=== PATIENT | male | born 1940 | race Caucasian/White ===

== ENCOUNTER 2017-11-10 08:33 | Emergency (ER) | payer MEDICARE, OTHER ==
[~2017-11-10] VITALS: Ht 180.3 cm; Wt 104.0 kg
[~2017-11-10 08:33] MED LIST: ALFU10TA PO; CLOP75TA15 PO; CYAN-19 PO; FISH12002 PO; HUMAN GROWTH HORMONE; LACTC PO; MELA5TAB12 PO; METF750T2 PO; NEBI5TAB10 PO; NIA500ERT PO; TADA5TAB2 PO; TAMS0.4C32 PO; TAUR500C2 PO; TELM80TA6 PO; TESTOSTERONE CREAM; THYR32.510 PO; UBID50CA31 PO; XAL0.005OS EACHEYE; [UNRECOGNIZED DRUG - CODE] PO
[2017-11-10 10:01] LABS: BASOPHILS % (AUTO) 0.5 % (0-1); EOSINOPHILS # (AUTO) 0.3 X10'3 (0-0.9); EOSINOPHILS % (AUTO) 5.8 % (0-6); HEMATOCRIT 50.6 % (42.0-52.0); HEMOGLOBIN 17.1 g/dl (14.0-17.9); LYMPHOCYTES % (AUTO) 22.1 % (21-51); MEAN CORPUSCULAR HEMOGLOBIN 30.6 PG (27.0-31.0); MEAN CORPUSCULAR HGB CONC 33.7 % (33.0-36.5); MEAN CORPUSCULAR VOLUME 90.8 FL (78-98); MEAN PLATELET VOLUME 8.9 FL (7.4-10.4); MONOCYTES # (AUTO) 0.6 X10'3 (0-0.9); NEUTROPHILS # (AUTO) 2.6 X10'3 (1.8-7.7); NEUTROPHILS % (AUTO) 58.6 % (42-75); PLATELET COUNT 159 X10'3 (140-440); RED BLOOD COUNT 5.58 X10'6 (4.70-6.10); RED CELL DISTRIBUTION WIDTH 14.3 % (11.5-14.5); WHITE BLOOD COUNT 4.4 X10'3 (4.5-11.0)
[2017-11-10 11:25] VITALS: BP 128/68
== END 2017-11-10 11:27 | disposition home or self-care (01) ==
LOC: ER 08:33
DX: K62.5 Hemorrhage of anus and rectum (principal); I48.91 Unspecified atrial fibrillation; Z86.718 Personal history of other venous thrombosis and embolism; Z79.899 Other long term (current) drug therapy
CPT/HCPCS: 36415; 85025; 99283

== ENCOUNTER 2018-04-28 12:58 | Outpatient (CLI) | payer OTHER, MEDICARE ==
[~2018-04-28 12:58] MED LIST changes: -TELM80TA6 PO; +TELM80TA9 PO
== END 2018-04-28 23:59 | disposition home or self-care (01) ==
LOC: VAS 12:58
PROVIDERS: ATTEND Internal Medicine Cardiovascular Disease
DX: I65.23 Occlusion and stenosis of bilateral carotid arteries (principal); I73.9 Peripheral vascular disease, unspecified; I25.2 Old myocardial infarction; I10 Essential (primary) hypertension; E11.9 Type 2 diabetes mellitus without complications
CPT/HCPCS: 93922; 93925

== ENCOUNTER 2020-08-20 15:14 | Emergency (ER) | payer OTHER ==
[~2020-08-20] VITALS: Ht 180.3 cm; Wt 116.8 kg
[~2020-08-20 15:14] MED LIST changes: -CYAN-19 PO; +CYAN-51 PO; -METF750T2 PO; +METF750T46 PO
[2020-08-20] MEDS ORDERED: furosemide 40mg/4ml inj IV ONE (15:35)
[2020-08-20 15:59] LABS: BASOPHILS % (AUTO) 0.7 % (0-1); EOSINOPHILS # (AUTO) 0.2 X10'3 (0-0.9); EOSINOPHILS % (AUTO) 3.5 % (0-6); HEMATOCRIT 44.6 % (42.0-52.0); HEMOGLOBIN 14.8 g/dl (14.0-17.9); LYMPHOCYTES # (AUTO) 1.4 X10'3 (1.1-4.8); LYMPHOCYTES % (AUTO) 24.4 % (21-51); MEAN CORPUSCULAR HEMOGLOBIN 30.8 PG (27.0-31.0); MEAN CORPUSCULAR HGB CONC 33.2 g/dL (33.0-36.5); MEAN CORPUSCULAR VOLUME 92.7 FL (78-98); MEAN PLATELET VOLUME 8.7 FL (7.4-10.4); MONOCYTES # (AUTO) 0.6 X10'3 (0-0.9); MONOCYTES % (AUTO) 10.3 % (2-12); NEUTROPHILS # (AUTO) 3.5 X10'3 (1.8-7.7); NEUTROPHILS % (AUTO) 61.1 % (42-75); PLATELET COUNT 141 X10'3 (140-440); RED CELL DISTRIBUTION WIDTH 14.7 % (11.5-14.5); WHITE BLOOD COUNT 5.7 X10'3 (4.5-11.0)
[2020-08-20 16:07] LABS: PARTIAL THROMBOPLASTIN TIME 31 SECONDS (22-32)
[2020-08-20 16:11] LABS: ALANINE AMINOTRANSFERASE 39 U/L (12-78); ALBUMIN 2.6 G/DL (3.4-5.0); ALBUMIN/GLOBULIN RATIO 0.8 (1.1-1.5); ALKALINE PHOSPHATASE 38 IU/L (46-116); ANION GAP 9 (8-16); ASPARTATE AMINO TRANSFERASE 24 U/L (10-37); BILIRUBIN,TOTAL 0.5 MG/DL (0.1-1.0); BLOOD UREA NITROGEN 18 MG/DL (7-18); BUN/CREATININE RATIO 18.6 (5.4-32.0); CALCIUM 6.6 MG/DL (8.5-10.1); CHLORIDE 111 MMOL/L (99-107); CREATININE 0.97 MG/DL (0.60-1.10); GLUCOSE 151 MG/DL (70-104); POTASSIUM 3.3 MMOL/L (3.5-5.1); SODIUM 143 MMOL/L (135-145); TOTAL CARBON DIOXIDE 22.9 MMOL/L (24-32); TOTAL PROTEIN 5.8 G/DL (6.4-8.2); eGFR 75 ML/MIN
--- NOTE | 2020-08-20 16:32 | NUR ---
tanna stood at bedside and used urinal 400 ml out, denied sob
[2020-08-20] MEDS ORDERED: potassium Cl 20 mEq SR tablet PO ONE (17:00)
[2020-08-20] MEDS ORDERED: FURO-150 PO (17:00)
--- NOTE | 2020-08-20 17:37 | NUR ---
LEFT MESSAGE FOR TO CALL BACK WELL AUGUSTINA SCHMID
[2020-08-20 18:11] VITALS: BP 149/84
== END 2020-08-20 18:00 | disposition home or self-care (01) ==
LOC: ER 15:15
DX: I50.9 Heart failure, unspecified (principal); R06.02 Shortness of breath; R07.89 Other chest pain; R60.0 Localized edema; I48.91 Unspecified atrial fibrillation; E11.9 Type 2 diabetes mellitus without complications; Z86.73 Personal history of transient ischemic attack (TIA), and cerebral infarction without residual deficits; Z86.718 Personal history of other venous thrombosis and embolism; Z88.8 Allergy status to other drugs, medicaments and biological substances; Z79.899 Other long term (current) drug therapy
CPT/HCPCS: 36415; 71045; 80053; 82948; 83880; 84484; 85025; 85610; 85730; 93005; 96374; 99285; J1940

== ENCOUNTER 2020-12-13 14:43 | Emergency (ER) | payer OTHER ==
[~2020-12-13] VITALS: Ht 180.3 cm; Wt 107.9 kg
[2020-12-13 14:49] VITALS: BP 126/58
== END 2020-12-13 20:05 | disposition left against medical advice (07) ==
LOC: ER 14:44
DX: R05 Cough (principal); Z53.21 Procedure and treatment not carried out due to patient leaving prior to being seen by health care provider

== ENCOUNTER 2022-07-07 14:34 | Day surgery (SDC) | payer OTHER ==
[2022-07-03 11:13] LABS: APTT 33 SECONDS (22-32)
[2022-07-03 11:15] LABS: ALBUMIN 3.4 G/DL (3.4-5.0); BLOOD UREA NITROGEN 24 MG/DL (7-18); BUN/CREATININE RATIO 16.2 (5.4-32.0); CALCIUM 9.4 MG/DL (8.5-10.1); CHLORIDE 102 MMOL/L (99-107); CHOL/HDL RATIO 4.2 (0.00-4.99); CHOLESTEROL 159 MG/DL (0-200); CREATININE 1.48 MG/DL (0.60-1.10); GLUCOSE 155 MG/DL (70-104); HDL CHOLESTEROL 38 MG/DL (35-60); LDL CHOLESTEROL 113 MG/DL (50-100); POTASSIUM 4.5 MMOL/L (3.5-5.1); TOTAL CARBON DIOXIDE 26.9 MMOL/L (24-32); TRIGLYCERIDES 59 MG/DL (20-135); eGFR 46 ML/MIN
[2022-07-03 11:19] LABS: ANION GAP 10 (8-16); SODIUM 139 MMOL/L (135-145)
[2022-07-07] VITALS (9 sets, daily range): BP systolic 111–170; BP diastolic 53–81
[~2022-07-07] VITALS: Ht 180.3 cm; Wt 106.1 kg
[~2022-07-07 14:34] MED LIST changes: +ACET-76 PO; +ALBU1.256 NEB; -ALFU10TA PO; +ALOG25TA PO; +APIX5TAB3 PO; +CILO100T27 PO; -CLOP75TA15 PO; +DEXA6TAB PO; +DICL20GE TOP; +DOCU100C40 PO; +DONE10TA44 PO; -FISH12002 PO; -HUMAN GROWTH HORMONE; +ISOS30TA84 PO; -LACTC PO; +LATA2.5D14 OP; +LIDO5CRE18 TOP; +LIDO700A32 TOP; +LOSA100T57 PO; -MELA5TAB12 PO; -NEBI5TAB10 PO; -NIA500ERT PO; -TADA5TAB2 PO; -TAMS0.4C32 PO; -TAUR500C2 PO; -TELM80TA9 PO; -TESTOSTERONE CREAM; -THYR32.510 PO; +THYR60TA2 PO; -UBID50CA31 PO; -XAL0.005OS EACHEYE; +[UNRECOGNIZED DRUG - CODE]; -[UNRECOGNIZED DRUG - CODE] PO
[2022-07-07] MEDS ORDERED: LORazepam 0.5 MG tablet PO PRN (14:50)
[2022-07-07] MEDS ORDERED: diphenhydrAMINE 25mg capsule PO PRN (14:50)
[2022-07-07] MEDS ORDERED: normal saline 1,000 ML IV SCH (14:50)
[2022-07-07 16:07] LABS: BASOPHILS # (AUTO) 0.1 X10'3 (0-0.2); EOSINOPHILS # (AUTO) 0.3 X10'3 (0-0.9); EOSINOPHILS % (AUTO) 3.6 % (0-6); HEMATOCRIT 49.1 % (42.0-52.0); HEMOGLOBIN 16.5 g/dl (14.0-17.9); LYMPHOCYTES # (AUTO) 1.6 X10'3 (1.1-4.8); LYMPHOCYTES % (AUTO) 21.8 % (21-51); MEAN CORPUSCULAR HEMOGLOBIN 29.9 PG (27.0-31.0); MEAN CORPUSCULAR HGB CONC 33.5 g/dL (33.0-36.5); MEAN CORPUSCULAR VOLUME 89.2 FL (78-98); MEAN PLATELET VOLUME 8.7 FL (7.4-10.4); MONOCYTES # (AUTO) 0.6 X10'3 (0-0.9); MONOCYTES % (AUTO) 7.9 % (2-12); NEUTROPHILS # (AUTO) 4.8 X10'3 (1.8-7.7); NEUTROPHILS % (AUTO) 65.7 % (42-75); PLATELET COUNT 213 X10'3 (140-440); RED BLOOD COUNT 5.51 X10'6 (4.70-6.10); RED CELL DISTRIBUTION WIDTH 14.7 % (11.5-14.5); WHITE BLOOD COUNT 7.4 X10'3 (4.5-11.0)
[2022-07-07] MEDS ORDERED: DOPamine 400mg/D5W 250ml 0 ML IV ONE (16:07)
[2022-07-07] MEDS ORDERED: atropine 0.1mg/ml 10ml syringe ONE (16:08)
[2022-07-07] MEDS ORDERED: iohexol 350MG/ML 100ml bottle IV ONE (16:08)
[2022-07-07] MEDS ORDERED: phenylephrine 10mg/ml inj. -priapism dosing ONE (16:08)
[2022-07-07] MEDS ORDERED: LIDOcaine 1% 30ml preserv. free vial ONE (16:08)
[2022-07-07] MEDS ORDERED: heparin 1,000unit/ml 10ml vial 0 ML ONE (16:10)
[2022-07-07] MEDS ORDERED: APIX2.5T PO (16:48)
[2022-07-07] MEDS ORDERED: DAPA10TA PO (16:48)
[2022-07-07] MEDS ORDERED: NITR0.4T51 SL (16:49)
[2022-07-07] MEDS ORDERED: NEBI5TAB10 PO (16:50)
[2022-07-07] MEDS ORDERED: CAPSAICIN TOP (16:52)
[2022-07-07] MEDS ORDERED: LACT1TAB11 PO (16:53)
[2022-07-07] MEDS ORDERED: LATA7.5D OP (16:54)
[2022-07-07] MEDS ORDERED: TADA5TAB2 PO (16:55)
[2022-07-07] MEDS ORDERED: Folic Acid PO (16:57)
[2022-07-07] MEDS ORDERED: ASCO100T12 PO (16:58)
[2022-07-07] MEDS ORDERED: UBID10CA9 PO (17:01)
[2022-07-07] MEDS ORDERED: ACET600C PO (17:02)
[2022-07-07] MEDS ORDERED: CYAN500T71 PO (17:02)
[2022-07-07] MEDS ORDERED: LYSI500T11 PO (17:03)
[2022-07-07] MEDS ORDERED: VITA400T10 PO (17:04)
[2022-07-07] MEDS ORDERED: ALIR75PE5 (17:06)
[2022-07-07] MEDS ORDERED: hydrALAZINE 20mg/ml inj. IV ONE (17:24)
[2022-07-07] MEDS ORDERED: hydrALAZINE 20mg/ml inj. IV PRN (18:25)
[2022-07-07] MEDS ORDERED: HYDROcodone/acetaminophen 5mg/325mg tablet PO PRN (18:25)
[2022-07-07] MEDS ORDERED: normal saline 1000ml 1,000 ML IV SCH (18:25)
[2022-07-07] MEDS ORDERED: HYDROcodone/acetaminophen 10/325mg tab PO PRN (18:25)
== END 2022-07-07 19:35 | disposition home or self-care (01) ==
LOC: SSTAY O 14:34
PROVIDERS: ATTEND Student in an Organized Health Care Education/Training Program
DX: I65.21 Occlusion and stenosis of right carotid artery (principal); I11.0 Hypertensive heart disease with heart failure; I50.9 Heart failure, unspecified; J44.9 Chronic obstructive pulmonary disease, unspecified; E78.5 Hyperlipidemia, unspecified; F32.9 Major depressive disorder, single episode, unspecified; E03.9 Hypothyroidism, unspecified; I48.91 Unspecified atrial fibrillation; G47.33 Obstructive sleep apnea (adult) (pediatric); E11.9 Type 2 diabetes mellitus without complications; Z86.73 Personal history of transient ischemic attack (TIA), and cerebral infarction without residual deficits; Z98.890 Other specified postprocedural states; Z79.899 Other long term (current) drug therapy; Z88.8 Allergy status to other drugs, medicaments and biological substances
CPT/HCPCS: 36222; 36415; 80048; 80061; 82948; 85025; 85610; 85730; 93005; C1760; C1769; C1887; C1894; J0360; J1644; J2370; J3490; J7030; Q9967; A4615; A6258; J0461; J1265